=== PATIENT | male | born 1970 | race Two or more races ===

== ENCOUNTER → 2019-02-03 | Outpatient (CLI) | payer MEDICARE, OTHER ==
--- NOTE | 2019-02-03 14:47 | RADIOLOGY REPORT (SQ) ---
EXAM DESCRIPTION: CT RT LOWER EXTREMITY WITHOUT COMPLETED DATE/TIME: 02/03/2019 2:04 pm REASON FOR STUDY: LOCALIZED SWELLING, MASS AND LUMP, RIGHT LOWER LIMB (R22.41) COMPARISON: None. TECHNIQUE: Axial imaging performed through the Right tibia and fibula with reformatted coronal and sagittal imaging windowed for bone and soft tissues. Images saved to PAC S. 3D IMAGING: Were 3D images as MIP, SSD, or volume rendering performed at the work station? Yes LIMITATIONS: None. FINDINGS: SOFT TISSUES: No obvious swelling or foreign body. BONY STRUCTURES: Cortical thickening in the diaphysis with asymmetric thickening of the anterior rishi ex. Linear defect in the medial cortex. No active periosteal reaction. MINERALIZATION: Normal. OTHER: No other significant finding. IMPRESSION: Old midshaft fracture with thickened anterior cortex. Reading location - IP/workstation name: [email or web address]
== END ==
LOC: RAD 13:44
PROVIDERS: ATTEND Orthopaedic Surgery Sports Medicine
DX: R22.41 Localized swelling, mass and lump, right lower limb (principal)